=== PATIENT | female | born 1955 | race Caucasian/White ===

== ENCOUNTER 2017-02-25 13:57 | Emergency (ER) | payer MEDICAID ==
[2017-02-25] MEDS: ACETAMINOPHEN 325 MG TAB PO (14:39)
== END 2017-02-25 16:15 | disposition home or self-care (01) ==
LOC: FTE 13:57
DX: S52.501A Unspecified fracture of the lower end of right radius, initial encounter for closed fracture (principal); S52.614A Nondisplaced fracture of right ulna styloid process, initial encounter for closed fracture; W18.39XA Other fall on same level, initial encounter; Y92.9 Unspecified place or not applicable
CPT/HCPCS: 29125; 73110-RT; 99283-25